=== PATIENT | male | born 1960 | race Hispanic/Latino ===

== ENCOUNTER 2021-01-26 16:17 | Inpatient (IN) | payer OTHER, SELFPAY ==
[~2021-01-26] VITALS: Ht 172.7 cm; Wt 122.5 kg
[2021-01-26 18:47] VITALS: BP 120/89
[2021-01-26] MEDS ORDERED: ATOR40TA71 PO (20:06)
[2021-01-26] MEDS ORDERED: LISI40TA9 PO (20:06)
[2021-01-26] MEDS ORDERED: METF-444 PO (20:06)
[2021-01-26] MEDS ORDERED: PIOG15TA66 PO (20:06)
[2021-01-26] MEDS ORDERED: HYDRALAZINE 20MG/ML VIAL IV PRN (21:00)
[2021-01-26] MEDS ORDERED: MORPHINE 4 MG SYG IV PRN (21:00)
[2021-01-26] MEDS ORDERED: ONDANSETRON 4MG INJ IV PRN (21:00)
[2021-01-26] MEDS ORDERED: MORPHINE 2 MG SYG IV PRN (21:00)
[2021-01-26] MEDS ORDERED: CEFTRIAXONE 1G VIAL IV SCH (21:00)
[2021-01-26 21:57] LABS: BASOPHILS % (AUTO) 0.9 % (0.0-5.0); EOSINOPHILS % (AUTO) 3.1 % (0.0-8.0); HEMATOCRIT 42.3 % (42-54); LYMPHOCYTES % (AUTO) 25.6 % (21.0-51.0); MEAN CORPUSCULAR HGB CONC 31.9 g/dL (32.0-36.0); MEAN CORPUSCULAR VOLUME 90.8 fL (79-99); MONOCYTES % (AUTO) 7.3 % (3.0-13.0); NEUTROPHILS % (AUTO) 62.6 % (40.0-77.0); PLATELET COUNT (AUTO) 267 K/uL (130-400); RED BLOOD CELL COUNT(AUTO) 4.66 MIL/uL (4.50-6.20); RED CELL DISTRIBUTION WIDTH 12.4 % (11.0-15.5); WHITE BLOOD COUNT (AUTO) 13.8 K/uL (4.8-10.8)
[2021-01-26] MEDS: LACTATED RINGERS 1000ML 1,000 ML IV SCH (21:59)
[2021-01-26] MEDS: FAMOTIDINE 20MG VIAL IV SCH (21:59)
[2021-01-26 22:10] LABS: INR 1.04 (0.85-1.15); PROTHROMBIN TIME 11.3 SEC (9.6-11.6)
[2021-01-26 22:11] LABS: PARTIAL THROMBOPLASTIN TIME 26.8 SEC (26.3-35.5)
[2021-01-26 22:12] LABS: HEMOGLOBIN A1C 12.7 % (4.0-6.0)
[2021-01-26 22:13] LABS: ALBUMIN 3.6 g/dL (3.5-5.0); BILIRUBIN,TOTAL 0.5 mg/dL (0.2-1.0); CREATININE 1.3 mg/dL (0.5-1.5); MAGNESIUM 2.1 mg/dL (1.80-2.40); PHOSPHORUS 3.1 mg/dL (2.5-4.9); POTASSIUM 4.4 mmol/L (3.5-5.1); TOTAL PROTEIN, SERUM 7.5 g/dL (6.0-8.3)
[2021-01-26 23:44] VITALS: BP 108/72
[2021-01-27 03:42] VITALS: BP 116/75
[2021-01-27] MEDS: LACTATED RINGERS 1000ML 1,000 ML IV SCH (05:37)
[2021-01-27 07:10] VITALS: BP 126/79
[2021-01-27] MEDS: FAMOTIDINE 20MG VIAL IV SCH ×2 (08:12→21:16)
[2021-01-27] MEDS: TAMSULOSIN HCL 0.4 MG CAP.ER.24H PO SCH (08:12)
[2021-01-27] MEDS ORDERED: TAMSULOSIN HCL 0.4 MG CAP.ER.24H PO SCH (09:00)
[2021-01-27 11:10] VITALS: BP 119/77
[2021-01-27] MEDS: CEFTRIAXONE 1G VIAL IV SCH (11:16)
[2021-01-27] MEDS ORDERED: INSULIN GLARGINE 100 UNITS/ML 10 ML VIAL SQ SCH ×2 (11:30→21:00)
[2021-01-27] MEDS: INSULIN HUMULIN R 100 UNIT/ML 3ML SQ SCH ×4 (11:44→21:25)
[2021-01-27 15:10] VITALS: BP 133/90
[2021-01-27 20:11] VITALS: BP 127/79
[2021-01-27 23:51] VITALS: BP 116/81
[2021-01-28 04:04] VITALS: BP 123/78
[2021-01-28] MEDS: INSULIN HUMULIN R 100 UNIT/ML 3ML SQ SCH ×7 (05:52→21:00)
[2021-01-28 06:11] LABS: BASOPHILS % (AUTO) 0.7 % (0.0-5.0); EOSINOPHILS % (AUTO) 3.8 % (0.0-8.0); HEMATOCRIT 36.1 % (42-54); LYMPHOCYTES % (AUTO) 25.3 % (21.0-51.0); MEAN CORPUSCULAR HGB CONC 32.4 g/dL (32.0-36.0); MEAN CORPUSCULAR VOLUME 89.6 fL (79-99); MONOCYTES % (AUTO) 8.6 % (3.0-13.0); NEUTROPHILS % (AUTO) 60.8 % (40.0-77.0); PLATELET COUNT (AUTO) 232 K/uL (130-400); RED BLOOD CELL COUNT(AUTO) 4.03 MIL/uL (4.50-6.20); RED CELL DISTRIBUTION WIDTH 12.3 % (11.0-15.5); WHITE BLOOD COUNT (AUTO) 10.1 K/uL (4.8-10.8)
[2021-01-28 07:37] VITALS: BP 143/92
[2021-01-28] MEDS: TAMSULOSIN HCL 0.4 MG CAP.ER.24H PO SCH ×2 (08:00→10:55)
[2021-01-28] MEDS ORDERED: INSULIN GLARGINE 100 UNITS/ML 10 ML VIAL SQ SCH ×3 (09:00)
[2021-01-28] MEDS: CEFTRIAXONE 1G VIAL IV SCH (10:54)
[2021-01-28] MEDS: FAMOTIDINE 20MG VIAL IV SCH ×2 (10:55→22:04)
[2021-01-28] MEDS: LISINOPRIL 10 MG TABLET PO SCH (10:55)
[2021-01-28 11:08] VITALS: BP 132/83
[2021-01-28 15:32] VITALS: BP 112/75
[2021-01-28 16:02] LABS: APPEARANCE,URINE Cloudy (CLEAR); BILIRUBIN,URINE Negative (NEGATIVE); COLOR,URINE Red (YELLOW); GLUCOSE, URINE (UA) Negative (NEGATIVE); KETONES,URINE Negative (NEGATIVE); LEUKOCYTE ESTERASE ,URINE Negative (NEGATIVE); NITRATE,URINE Negative (NEGATIVE); OCCULT BLOOD,URINE Large (NEGATIVE); PH,URINE 5.5 (5.0-8.0); PROTEIN,URINE Negative (NEGATIVE); UROBILINOGEN,URINE 0.2 mg/dL (0.2-1.0)
[2021-01-28 16:22] LABS: RBC,URINE 51-100 /HPF (0-1)
[2021-01-28 16:23] LABS: BACTERIA,URINE Rare /HPF (None Seen); SQUAMOUS EPITHELIAL CELL,UR None Seen /HPF (0-2); WBC,URINE 0-1 /HPF (0-1)
[2021-01-28 20:00] VITALS: BP 119/72
[2021-01-28] MEDS: DOCUSATE SODIUM 100 MG CAP PO SCH (22:04)
[2021-01-28] MEDS: FINASTERIDE 5 MG TABLET PO SCH (22:04)
[2021-01-28] MEDS: ATORVASTATIN 40 MG TABLET PO SCH (22:04)
[2021-01-28] MEDS ORDERED: HYDROCODONE/ACETAMINOPHEN 5/325 MG TAB PO ONE (23:11)
[2021-01-28] MEDS: OPIUM/BELLADONNA ALKALOIDS 1 EACH SUPP.RECT RC SCH (23:36)
[2021-01-29] VITALS: BP 104/64
[2021-01-29 04:00] VITALS: BP 110/69
[2021-01-29 05:40] LABS: BASOPHILS % (AUTO) 0.8 % (0.0-5.0); EOSINOPHILS % (AUTO) 3.9 % (0.0-8.0); HEMATOCRIT 37.4 % (42-54); LYMPHOCYTES % (AUTO) 25.3 % (21.0-51.0); MEAN CORPUSCULAR HEMOGLOBIN 28.4 pg (27.0-33.0); MEAN CORPUSCULAR VOLUME 91.7 fL (79-99); MONOCYTES % (AUTO) 8.9 % (3.0-13.0); NEUTROPHILS % (AUTO) 60.3 % (40.0-77.0); PLATELET COUNT (AUTO) 209 K/uL (130-400); RED BLOOD CELL COUNT(AUTO) 4.08 MIL/uL (4.50-6.20); RED CELL DISTRIBUTION WIDTH 12.2 % (11.0-15.5); WHITE BLOOD COUNT (AUTO) 10.8 K/uL (4.8-10.8)
[2021-01-29 06:07] LABS: % IRON SATURATION 16.5 % (30-44)
[2021-01-29 06:20] LABS: CREATININE 1.1 mg/dL (0.5-1.5); POTASSIUM 4.3 mmol/L (3.5-5.1); THYROID STIMULATING HORMONE 1.69 uIU/mL (0.36-3.74)
[2021-01-29] MEDS: INSULIN HUMULIN R 100 UNIT/ML 3ML SQ SCH ×7 (07:30→20:55)
[2021-01-29] MEDS: TAMSULOSIN HCL 0.4 MG CAP.ER.24H PO SCH ×2 (08:00→10:21)
[2021-01-29 09:29] VITALS: BP 127/75
[2021-01-29] MEDS: DOCUSATE SODIUM 100 MG CAP PO SCH ×2 (10:21→21:49)
[2021-01-29] MEDS: LISINOPRIL 10 MG TABLET PO SCH (10:22)
[2021-01-29] MEDS: CEFTRIAXONE 1G VIAL IV SCH (10:22)
[2021-01-29] MEDS: FAMOTIDINE 20MG VIAL IV SCH (10:22)
[2021-01-29] MEDS: FINASTERIDE 5 MG TABLET PO SCH (10:22)
[2021-01-29] MEDS: INSULIN GLARGINE 100 UNITS/ML 10 ML VIAL SQ SCH (10:36)
[2021-01-29 11:23] VITALS: BP 119/77
[2021-01-29] MEDS ORDERED: ACETAMINOPHEN 500 MG TABLET PO PRN (12:30)
[2021-01-29] MEDS ORDERED: ACETAMINOPHEN WITH CODEINE 1 TAB TAB PO PRN (12:30)
[2021-01-29] MEDS: ACETAMINOPHEN WITH CODEINE 1 TAB TAB PO PRN (12:47)
[2021-01-29 16:47] VITALS: BP 105/59
[2021-01-29] MEDS ORDERED: COMPOUND IV MISC 1 EACH IVSOLN MISC PRN (19:30)
[2021-01-29 20:00] VITALS: BP 114/79
[2021-01-29] MEDS: ATORVASTATIN 40 MG TABLET PO SCH (21:49)
[2021-01-29] MEDS: CYANOCOBALAMIN (VITAMIN B-12) 1000 MCG/ML 1ML VIAL IM SCH (21:49)
[2021-01-29] MEDS: IRON SUCROSE COMPLEX 400 MG in 0.9%NACL 50ML 50 ML IV SCH (21:50)
[2021-01-30] VITALS: BP 122/70
[2021-01-30 04:00] VITALS: BP 110/69
[2021-01-30 05:09] LABS: BASOPHILS % (AUTO) 0.6 % (0.0-5.0); EOSINOPHILS % (AUTO) 3.7 % (0.0-8.0); HEMATOCRIT 32.8 % (42-54); LYMPHOCYTES % (AUTO) 24.6 % (21.0-51.0); MEAN CORPUSCULAR HEMOGLOBIN 28.9 pg (27.0-33.0); MEAN CORPUSCULAR HGB CONC 32.3 g/dL (32.0-36.0); MEAN CORPUSCULAR VOLUME 89.4 fL (79-99); MONOCYTES % (AUTO) 9.2 % (3.0-13.0); NEUTROPHILS % (AUTO) 61.3 % (40.0-77.0); PLATELET COUNT (AUTO) 223 K/uL (130-400); RED BLOOD CELL COUNT(AUTO) 3.67 MIL/uL (4.50-6.20); RED CELL DISTRIBUTION WIDTH 12.1 % (11.0-15.5); WHITE BLOOD COUNT (AUTO) 10.4 K/uL (4.8-10.8)
[2021-01-30 05:22] LABS: CRP QUANTITATIVE 117.1 mg/L (0.00-9.0); POTASSIUM 3.9 mmol/L (3.5-5.1); URIC ACID 5.9 mg/dL (2.6-7.2)
[2021-01-30] MEDS: INSULIN HUMULIN R 100 UNIT/ML 3ML SQ SCH ×6 (05:49→17:43)
[2021-01-30 07:58] VITALS: BP 121/79
[2021-01-30] MEDS: TAMSULOSIN HCL 0.4 MG CAP.ER.24H PO SCH ×2 (08:00→09:00)
[2021-01-30] MEDS: OPIUM/BELLADONNA ALKALOIDS 1 EACH SUPP.RECT RC SCH (08:35)
[2021-01-30] MEDS: DOCUSATE SODIUM 100 MG CAP PO SCH (08:59)
[2021-01-30] MEDS: LISINOPRIL 10 MG TABLET PO SCH (09:00)
[2021-01-30] MEDS: FINASTERIDE 5 MG TABLET PO SCH (09:00)
[2021-01-30] MEDS: ACETAMINOPHEN WITH CODEINE 1 TAB TAB PO PRN (09:01)
[2021-01-30] MEDS: IRON SUCROSE COMPLEX 400 MG in 0.9%NACL 50ML 50 ML IV SCH (09:04)
[2021-01-30] MEDS: INSULIN GLARGINE 100 UNITS/ML 10 ML VIAL SQ SCH (09:41)
[2021-01-30] MEDS: CYANOCOBALAMIN (VITAMIN B-12) 1000 MCG/ML 1ML VIAL IM SCH (09:55)
[2021-01-30 11:51] VITALS: BP 120/70
[2021-01-30] MEDS: CEFTRIAXONE 1G VIAL IV SCH (13:03)
[2021-01-30 16:00] VITALS: BP 120/75
[2021-01-30] MEDS ORDERED: INSU3INS3 SQ (17:19)
[2021-01-30] MEDS ORDERED: FINA5TAB2 PO (17:19)
[2021-01-30] MEDS ORDERED: TAMS-1 PO (17:19)
[2021-01-30] MEDS ORDERED: METF-446 PO (17:19)
[2021-02-01] MEDS ORDERED: CIPR-279 PO (05:11)
== END 2021-01-30 20:18 | disposition home or self-care (01) | DRG 696 ==
LOC: 3AH 18:40 → UNDOADMIN 18:40 → 3AH 20:53
PROVIDERS: ADMIT Internal Medicine; ATTEND Internal Medicine
DX: R31.0 Gross hematuria (principal); D62 Acute posthemorrhagic anemia; Z68.41 Body mass index [BMI] 40.0-44.9, adult; N13.8 Other obstructive and reflux uropathy; N40.1 Benign prostatic hyperplasia with lower urinary tract symptoms; E11.9 Type 2 diabetes mellitus without complications; E78.5 Hyperlipidemia, unspecified; E66.9 Obesity, unspecified; I10 Essential (primary) hypertension; N28.1 Cyst of kidney, acquired; D50.9 Iron deficiency anemia, unspecified; E53.8 Deficiency of other specified B group vitamins; Z79.84 Long term (current) use of oral hypoglycemic drugs
CPT/HCPCS: 36415; 71045; 71046; 73610; 76770; 80048; 80053; 81001; 82607; 82728; 82746; 82948; 83036; 83540; 83550; 83735; 84100; 84145; 84443; 84550; 85025; 85045; 85610; 85651; 85730; 86140; 86850; 86900; 86901; 87040; 87077; 87088; 87186; 93005; G0378; J0696; J1756; J1815; J3420; J3490; J7120

== ENCOUNTER 2021-02-01 02:41 | Emergency (ER) | payer OTHER, SELFPAY ==
[~2021-02-01] VITALS: Ht 152.4 cm; Wt 124.7 kg
[~2021-02-01 02:41] MED LIST: ATOR40TA71 PO; FINA5TAB2 PO; INSU3INS3 SQ; LISI40TA9 PO; METF-446 PO; PIOG15TA66 PO; TAMS-1 PO
[2021-02-01] MEDS ORDERED: ACETAMINOPHEN WITH CODEINE 1 TAB TAB PO ONE (05:00)
[2021-02-01] MEDS ORDERED: CIPR-279 PO ×2 (05:11)
[2021-02-01] MEDS ORDERED: CIPROFLOXACIN HCL 500 MG TABLET PO ONE (05:30)
[2021-02-01 05:33] LABS: APPEARANCE,URINE CLOUDY (CLEAR); BILIRUBIN,URINE SMALL (NEGATIVE); COLOR,URINE AMBER (YELLOW); GLUCOSE, URINE (UA) NEGATIVE (NEGATIVE); KETONES,URINE 15 mg/dL (NEGATIVE); LEUKOCYTE ESTERASE ,URINE SMALL (NEGATIVE); NITRATE,URINE POSITIVE (NEGATIVE); OCCULT BLOOD,URINE LARGE (NEGATIVE); PROTEIN,URINE 100 mg/dL (NEGATIVE); UROBILINOGEN,URINE 0.2 mg/dL (0.2-1.0)
[2021-02-01 06:00] VITALS: BP 145/71
[2021-02-01 06:07] LABS: RBC,URINE TNTC /HPF (0-1)
[2021-02-01 06:08] LABS: BACTERIA,URINE None Seen /HPF (None Seen); SQUAMOUS EPITHELIAL CELL,UR Rare /HPF (0-2)
== END 2021-02-01 07:10 | disposition home or self-care (01) ==
LOC: EDH 02:41
DX: R33.9 Retention of urine, unspecified (principal); R31.9 Hematuria, unspecified; E11.9 Type 2 diabetes mellitus without complications; E78.00 Pure hypercholesterolemia, unspecified; I10 Essential (primary) hypertension; Z46.6 Encounter for fitting and adjustment of urinary device; Z79.4 Long term (current) use of insulin; Z79.899 Other long term (current) drug therapy
CPT/HCPCS: 51702; 81001; 87077; 87088; 87186

== ENCOUNTER 2021-02-04 08:25 | Inpatient (IN) | payer SELFPAY ==
[~2021-02-04] VITALS: Ht 172.7 cm; Wt 125.0 kg
[~2021-02-04 08:25] MED LIST changes: +CIPR-279 PO
[2021-02-04 08:53] LABS: BASOPHILS % (AUTO) 0.7 % (0.0-5.0); EOSINOPHILS % (AUTO) 4.1 % (0.0-8.0); HEMATOCRIT 33.7 % (42-54); LYMPHOCYTES % (AUTO) 21.3 % (21.0-51.0); MEAN CORPUSCULAR HEMOGLOBIN 28.9 pg (27.0-33.0); MEAN CORPUSCULAR HGB CONC 32.6 g/dL (32.0-36.0); MEAN CORPUSCULAR VOLUME 88.5 fL (79-99); MONOCYTES % (AUTO) 8.7 % (3.0-13.0); NEUTROPHILS % (AUTO) 64.1 % (40.0-77.0); PLATELET COUNT (AUTO) 337 K/uL (130-400); RED BLOOD CELL COUNT(AUTO) 3.81 MIL/uL (4.50-6.20); RED CELL DISTRIBUTION WIDTH 12.4 % (11.0-15.5); WHITE BLOOD COUNT (AUTO) 9.9 K/uL (4.8-10.8)
[2021-02-04] MEDS ORDERED: MORPHINE 4 MG SYG IV SCH (09:30)
[2021-02-04 09:40] LABS: APPEARANCE,URINE CLOUDY (CLEAR); BILIRUBIN,URINE SMALL (NEGATIVE); COLOR,URINE RED (YELLOW); GLUCOSE, URINE (UA) NEGATIVE (NEGATIVE); KETONES,URINE NEGATIVE (NEGATIVE); LEUKOCYTE ESTERASE ,URINE TRACE (NEGATIVE); NITRATE,URINE POSITIVE (NEGATIVE); OCCULT BLOOD,URINE LARGE (NEGATIVE); PROTEIN,URINE >=300 mg/dL (NEGATIVE)
[2021-02-04 10:16] LABS: BACTERIA,URINE Few /HPF (None Seen); RBC,URINE TNTC /HPF (0-1); SQUAMOUS EPITHELIAL CELL,UR Few /HPF (0-2)
[2021-02-04] MEDS ORDERED: HYDRALAZINE 20MG/ML VIAL IV PRN (11:30)
[2021-02-04] MEDS ORDERED: ACETAMINOPHEN 325 MG TAB PO PRN ×2 (11:30)
[2021-02-04] MEDS ORDERED: ONDANSETRON 4MG INJ IV PRN (11:30)
[2021-02-04] MEDS ORDERED: 0.9%NACL 1000ML 1,000 ML IV ONE (12:19)
[2021-02-04] MEDS: 0.9%NACL 1000ML 1,000 ML IV SCH (12:50)
[2021-02-04] MEDS: CEFTRIAXONE 1G VIAL IVP SCH (14:06)
[2021-02-04 15:12] LABS: INR 1.04 (0.85-1.15); PROTHROMBIN TIME 11.3 SEC (9.6-11.6)
[2021-02-04 15:13] LABS: PARTIAL THROMBOPLASTIN TIME 30.8 SEC (26.3-35.5)
[2021-02-04] MEDS: INSULIN LISPRO 100 UNIT/ML 3ML SQ SCH (17:45)
[2021-02-04] MEDS: FAMOTIDINE 20MG VIAL IV SCH (20:35)
[2021-02-04] MEDS ORDERED: INSULIN GLARGINE 100 UNITS/ML 10 ML VIAL SQ SCH (21:00)
[2021-02-04 21:10] VITALS: BP 121/63
[2021-02-05 00:34] VITALS: BP 108/69
[2021-02-05] MEDS: 0.9%NACL 1000ML 1,000 ML IV SCH ×2 (01:00→07:54)
[2021-02-05 04:33] VITALS: BP 114/83
[2021-02-05 04:49] LABS: HEMATOCRIT 32.9 % (42-54); MEAN CORPUSCULAR HGB CONC 31.6 g/dL (32.0-36.0); MEAN CORPUSCULAR VOLUME 91.6 fL (79-99); RED BLOOD CELL COUNT(AUTO) 3.59 MIL/uL (4.50-6.20); RED CELL DISTRIBUTION WIDTH 12.5 % (11.0-15.5); WHITE BLOOD COUNT (AUTO) 9.1 K/uL (4.8-10.8)
[2021-02-05] MEDS: INSULIN LISPRO 100 UNIT/ML 3ML SQ SCH ×3 (05:27→11:44)
[2021-02-05 07:30] VITALS: BP 130/77
[2021-02-05] MEDS ORDERED: TAMSULOSIN HCL 0.4 MG CAP.ER.24H PO SCH (09:00)
[2021-02-05] MEDS ORDERED: LISINOPRIL 40 MG TABLET PO SCH (09:00)
[2021-02-05] MEDS ORDERED: FINASTERIDE 5 MG TABLET PO SCH (09:00)
[2021-02-05] MEDS: FAMOTIDINE 20MG VIAL IV SCH (09:41)
[2021-02-05] MEDS ORDERED: FLUCONAZOLE 200 MG/NS 100 ML 100 ML IV SCH (10:30)
[2021-02-05 11:00] VITALS: BP 134/81
[2021-02-05] MEDS: CEFTRIAXONE 1G VIAL IVP SCH (12:08)
[2021-02-06] MEDS ORDERED: DOCUSATE SODIUM 100 MG CAP PO SCH (09:00)
== END 2021-02-05 16:20 | disposition home or self-care (01) | DRG 700 ==
LOC: EDH 08:25 → EDHIP 08:26 → 3DH 20:37
PROVIDERS: ADMIT Internal Medicine; ATTEND Internal Medicine
DX: T83.091A Other mechanical complication of indwelling urethral catheter, initial encounter (principal); R33.8 Other retention of urine; E78.5 Hyperlipidemia, unspecified; I10 Essential (primary) hypertension; E78.00 Pure hypercholesterolemia, unspecified; N32.89 Other specified disorders of bladder; E11.9 Type 2 diabetes mellitus without complications; Y73.8 Miscellaneous gastroenterology and urology devices associated with adverse incidents, not elsewhere classified; Y92.89 Other specified places as the place of occurrence of the external cause
CPT/HCPCS: 36415; 71045; 80048; 81001; 82948; 85025; 85027; 85610; 85730; G0378; J0696; J1450; J2270; J3490; J7030